=== PATIENT | female | born 1955 | race Caucasian/White ===

== ENCOUNTER 2023-07-19 14:49 | Inpatient (IN) | payer OTHER ==
[2023-07-19 16:05] VITALS: BMI 39.1
[2023-07-19] MEDS ORDERED: LOPERAMIDE HCL 2 MG CAPSULE PO PRN (23:38)
[2023-07-19] MEDS ORDERED: IBUPROFEN 400 MG TABLET (FP) PO PRN (23:38)
[2023-07-19] MEDS ORDERED: guaiFENesin 600 MG TABLET.ER (FP) PO PRN (23:38)
[2023-07-19] MEDS ORDERED: MAGNESIUM HYDROX 2400MG/30ML ORAL SUSPENSION 30 ML CUP PO PRN (23:38)
[2023-07-19] MEDS ORDERED: NICOTINE POLACRILEX 2 MG GUM BUC PRN (23:38)
[2023-07-19] MEDS ORDERED: BENZOCAINE/MENTHOL (CHLORASEPTIC ) LOZENGE MM PRN (23:38)
[2023-07-19] MEDS ORDERED: MAG HYDROX/AL HYDROX/SIMETH 30 ML UNIT-DOSE CUP PO PRN (23:38)
[2023-07-19] MEDS ORDERED: POLYETHYLENE GLYCOL (HEALTHYLAX) 3350 17 GM PACKET PO PRN (23:38)
[2023-07-19] MEDS ORDERED: BENZONATATE 200 MG CAPSULE PO PRN (23:38)
[2023-07-20] MEDS: MELATONIN 5 MG TABLETS PO SCH ×2 (01:29→21:13)
[2023-07-20] MEDS: COLLOIDAL OATMEAL 1 BAR EACH TP PRN (01:33)
[2023-07-20] MEDS: BICTEGRAV/EMTRICIT/TENOFOV (BIKTARVY) 50-200-25 MG TABLET PO SCH (07:08)
[2023-07-20] MEDS ORDERED: TUBERCULIN PPD 5 TU/0.1ML VIAL ID ONE (09:34)
[2023-07-20] MEDS: PRENATAL VITAMINS W/ FOLIC ACID TABLET (FP) PO SCH (09:36)
[2023-07-20] MEDS: P-EPHED 60MG/TRIPROLIDI 2.5MG TABLET PO PRN (09:37)
[2023-07-20] MEDS: ACETAMINOPHEN 325 MG TABLET (FP) PO PRN (09:38)
[2023-07-20] MEDS: TUBERCULIN PPD 5 TU/0.1ML SYRINGE (IN PATIENT USE ONLY) ID ONE ×2 (09:48→12:58)
[2023-07-20 10:49] LABS: HEMATOCRIT 40.6 % (32.4-45.2); HEMOGLOBIN 12.7 GM/dL (10.7-15.3); MCH 28.1 pg (25.7-33.7); MCHC 31.2 g/dl (32.0-36.0); MEAN CELL VOLUME 89.9 fl (80-96); MEAN PLT VOLUME 10.7 fl (7.5-11.1); PLATELET COUNT 146 10^3/uL (134-434); RBC 4.52 M/mm3 (3.60-5.2); RDW 14.5 % (11.6-15.6); WHITE BLOOD COUNT 4.5 K/mm3 (4.0-10.0)
[2023-07-20 11:04] LABS: CALCIUM 8.3 mg/dL (8.5-10.1); CREATININE 0.9 mg/dL (0.55-1.3); TOT PROT 6.4 g/dl (6.4-8.2)
[2023-07-20 11:06] LABS: ALBUMIN 2.9 g/dl (3.4-5.0); BILIRUBIN,TOTAL 0.2 mg/dL (0.2-1); BLOOD UREA NITROGEN 15.2 mg/dL (7-18)
[2023-07-20 12:40] LABS: SYPHILIS W/ RPR CONF NON-REACTIVE (NONREACTIVE)
[2023-07-20] MEDS ORDERED: PATIENT'S OWN MEDICATION (NON-FORMULARY) (Lisinopril/Hydrochlorothiazide [Lisinopril-Hctz PO SCH (16:00)
[2023-07-20] MEDS: HYDROCHLOROTHIAZIDE 12.5 MG CAPSULE (FP) PO SCH (18:01)
[2023-07-20] MEDS: LISINOPRIL 20 MG TABLET PO SCH (18:01)
[2023-07-20] MEDS: THIAMINE HCL 100 MG TABLET (FP) PO SCH (21:13)
[2023-07-20] MEDS: MONTELUKAST NA 10 MG TABLET PO SCH (21:15)
[2023-07-20] MEDS ORDERED: SUVOREXANT 10 MG TABLET PO PRN (22:00)
[2023-07-21] MEDS ORDERED: PNEUMOC 20-VAL CONJ-DIP CRM/PF 0.5 ML SYRINGE IM ONE (07:00)
[2023-07-21] MEDS: BICTEGRAV/EMTRICIT/TENOFOV (BIKTARVY) 50-200-25 MG TABLET PO SCH (07:02)
[2023-07-21] MEDS: PRENATAL VITAMINS W/ FOLIC ACID TABLET (FP) PO SCH (09:52)
[2023-07-21] MEDS: LISINOPRIL 20 MG TABLET PO SCH (09:52)
[2023-07-21] MEDS: HYDROCHLOROTHIAZIDE 12.5 MG CAPSULE (FP) PO SCH (09:52)
[2023-07-21] MEDS: GABAPENTIN 300 MG CAPSULE PO SCH (09:52)
[2023-07-21] MEDS: amLODIPine BESYLATE 5 MG TABLET (FP) PO SCH (09:52)
[2023-07-21] MEDS: P-EPHED 60MG/TRIPROLIDI 2.5MG TABLET PO PRN (09:52)
[2023-07-21] MEDS: MELATONIN 5 MG TABLETS PO SCH (21:07)
[2023-07-21] MEDS: MONTELUKAST NA 10 MG TABLET PO SCH (21:07)
[2023-07-21] MEDS: THIAMINE HCL 100 MG TABLET (FP) PO SCH (21:08)
[2023-07-22] MEDS: BICTEGRAV/EMTRICIT/TENOFOV (BIKTARVY) 50-200-25 MG TABLET PO SCH (07:02)
[2023-07-22] MEDS: amLODIPine BESYLATE 5 MG TABLET (FP) PO SCH (10:15)
[2023-07-22] MEDS: GABAPENTIN 300 MG CAPSULE PO SCH (10:15)
[2023-07-22] MEDS: LISINOPRIL 20 MG TABLET PO SCH (10:15)
[2023-07-22] MEDS: HYDROCHLOROTHIAZIDE 12.5 MG CAPSULE (FP) PO SCH (10:15)
[2023-07-22] MEDS: PRENATAL VITAMINS W/ FOLIC ACID TABLET (FP) PO SCH (10:15)
[2023-07-22] MEDS: ALBUTEROL SO4 HFA INHALER IH PRN (21:17)
[2023-07-22] MEDS: MONTELUKAST NA 10 MG TABLET PO SCH (21:19)
[2023-07-22] MEDS: THIAMINE HCL 100 MG TABLET (FP) PO SCH (21:19)
[2023-07-22] MEDS: ACETAMINOPHEN 325 MG TABLET (FP) PO PRN (21:19)
[2023-07-22] MEDS: MELATONIN 5 MG TABLETS PO SCH (21:20)
[2023-07-23] MEDS: BICTEGRAV/EMTRICIT/TENOFOV (BIKTARVY) 50-200-25 MG TABLET PO SCH (07:03)
[2023-07-23] MEDS: IBUPROFEN 600 MG TABLET (FP) PO PRN (07:31)
[2023-07-23] MEDS: PRENATAL VITAMINS W/ FOLIC ACID TABLET (FP) PO SCH (09:55)
[2023-07-23] MEDS: HYDROCHLOROTHIAZIDE 12.5 MG CAPSULE (FP) PO SCH (09:55)
[2023-07-23] MEDS: amLODIPine BESYLATE 5 MG TABLET (FP) PO SCH (09:55)
[2023-07-23] MEDS: LISINOPRIL 20 MG TABLET PO SCH (09:55)
[2023-07-23] MEDS: GABAPENTIN 300 MG CAPSULE PO SCH (09:55)
[2023-07-23] MEDS: MELATONIN 5 MG TABLETS PO SCH (21:02)
[2023-07-23] MEDS: THIAMINE HCL 100 MG TABLET (FP) PO SCH (21:03)
[2023-07-23] MEDS: MONTELUKAST NA 10 MG TABLET PO SCH (21:03)
[2023-07-24] MEDS: BICTEGRAV/EMTRICIT/TENOFOV (BIKTARVY) 50-200-25 MG TABLET PO SCH (07:25)
[2023-07-24] MEDS: PRENATAL VITAMINS W/ FOLIC ACID TABLET (FP) PO SCH (10:33)
[2023-07-24] MEDS: GABAPENTIN 300 MG CAPSULE PO SCH (10:33)
[2023-07-24] MEDS: amLODIPine BESYLATE 5 MG TABLET (FP) PO SCH (10:33)
[2023-07-24] MEDS: SODIUM CHLORIDE NASAL SPRAY 44 ML BOTTLE NS PRN (10:34)
[2023-07-24] MEDS: HYDROCHLOROTHIAZIDE 12.5 MG CAPSULE (FP) PO SCH (10:39)
[2023-07-24] MEDS: LISINOPRIL 20 MG TABLET PO SCH (10:40)
[2023-07-24] MEDS: THIAMINE HCL 100 MG TABLET (FP) PO SCH (21:11)
[2023-07-24] MEDS: MELATONIN 5 MG TABLETS PO SCH (21:11)
[2023-07-24] MEDS: MONTELUKAST NA 10 MG TABLET PO SCH (21:13)
[2023-07-24] MEDS: ALBUTEROL SO4 HFA INHALER IH PRN (21:14)
[2023-07-25] MEDS: SODIUM CHLORIDE NASAL SPRAY 44 ML BOTTLE NS PRN ×3 (00:07→21:21)
[2023-07-25 07:17] VITALS: RESP 18
[2023-07-25] MEDS: BICTEGRAV/EMTRICIT/TENOFOV (BIKTARVY) 50-200-25 MG TABLET PO SCH (07:28)
[2023-07-25] MEDS: PRENATAL VITAMINS W/ FOLIC ACID TABLET (FP) PO SCH (10:09)
[2023-07-25] MEDS: amLODIPine BESYLATE 5 MG TABLET (FP) PO SCH (10:11)
[2023-07-25] MEDS: LISINOPRIL 20 MG TABLET PO SCH (10:11)
[2023-07-25] MEDS: GABAPENTIN 300 MG CAPSULE PO SCH (10:11)
[2023-07-25] MEDS: HYDROCHLOROTHIAZIDE 12.5 MG CAPSULE (FP) PO SCH (10:11)
[2023-07-25] MEDS: ALBUTEROL SO4 HFA INHALER IH PRN ×2 (10:12→21:19)
[2023-07-25] MEDS: THIAMINE HCL 100 MG TABLET (FP) PO SCH (21:19)
[2023-07-25] MEDS: MELATONIN 5 MG TABLETS PO SCH (21:19)
[2023-07-25] MEDS: MONTELUKAST NA 10 MG TABLET PO SCH (21:19)
[2023-07-26] MEDS: BICTEGRAV/EMTRICIT/TENOFOV (BIKTARVY) 50-200-25 MG TABLET PO SCH (07:19)
[2023-07-26] MEDS: PRENATAL VITAMINS W/ FOLIC ACID TABLET (FP) PO SCH (09:45)
[2023-07-26] MEDS: amLODIPine BESYLATE 5 MG TABLET (FP) PO SCH (09:46)
[2023-07-26] MEDS: LISINOPRIL 20 MG TABLET PO SCH (09:46)
[2023-07-26] MEDS: GABAPENTIN 300 MG CAPSULE PO SCH (09:46)
[2023-07-26] MEDS: HYDROCHLOROTHIAZIDE 12.5 MG CAPSULE (FP) PO SCH (09:47)
[2023-07-26] MEDS: ALBUTEROL SO4 HFA INHALER IH PRN ×2 (09:48→21:38)
[2023-07-26] MEDS: SODIUM CHLORIDE NASAL SPRAY 44 ML BOTTLE NS PRN ×2 (09:48→21:38)
[2023-07-26] MEDS: COLLOIDAL OATMEAL 1 BAR EACH TP PRN (13:15)
[2023-07-26] MEDS: BUDESONIDE/FORMETEROL FUMARATE 160/4.5 mcg INHALER IH SCH (21:35)
[2023-07-26] MEDS: MELATONIN 5 MG TABLETS PO SCH (21:36)
[2023-07-26] MEDS: MONTELUKAST NA 10 MG TABLET PO SCH (21:37)
[2023-07-26] MEDS: THIAMINE HCL 100 MG TABLET (FP) PO SCH (21:37)
[2023-07-27] MEDS: BICTEGRAV/EMTRICIT/TENOFOV (BIKTARVY) 50-200-25 MG TABLET PO SCH (08:29)
[2023-07-27] MEDS: BUDESONIDE/FORMETEROL FUMARATE 160/4.5 mcg INHALER IH SCH ×2 (09:44→21:28)
[2023-07-27] MEDS: HYDROCHLOROTHIAZIDE 12.5 MG CAPSULE (FP) PO SCH (09:44)
[2023-07-27] MEDS: LISINOPRIL 20 MG TABLET PO SCH (09:44)
[2023-07-27] MEDS: amLODIPine BESYLATE 5 MG TABLET (FP) PO SCH (09:44)
[2023-07-27] MEDS: PRENATAL VITAMINS W/ FOLIC ACID TABLET (FP) PO SCH (09:45)
[2023-07-27] MEDS: GABAPENTIN 300 MG CAPSULE PO SCH (09:45)
[2023-07-27] MEDS: ALBUTEROL SO4 HFA INHALER IH PRN (09:46)
[2023-07-27] MEDS: MELATONIN 5 MG TABLETS PO SCH (21:26)
[2023-07-27] MEDS: THIAMINE HCL 100 MG TABLET (FP) PO SCH (21:26)
[2023-07-27] MEDS: MONTELUKAST NA 10 MG TABLET PO SCH (21:27)
[2023-07-27] MEDS: SODIUM CHLORIDE NASAL SPRAY 44 ML BOTTLE NS PRN (21:28)
[2023-07-28] MEDS: BICTEGRAV/EMTRICIT/TENOFOV (BIKTARVY) 50-200-25 MG TABLET PO SCH (07:04)
[2023-07-28] MEDS: HYDROCHLOROTHIAZIDE 12.5 MG CAPSULE (FP) PO SCH (09:52)
[2023-07-28] MEDS: LISINOPRIL 20 MG TABLET PO SCH (09:52)
[2023-07-28] MEDS: GABAPENTIN 300 MG CAPSULE PO SCH (09:52)
[2023-07-28] MEDS: PRENATAL VITAMINS W/ FOLIC ACID TABLET (FP) PO SCH (09:52)
[2023-07-28] MEDS: BUDESONIDE/FORMETEROL FUMARATE 160/4.5 mcg INHALER IH SCH ×2 (09:52→21:39)
[2023-07-28] MEDS: amLODIPine BESYLATE 5 MG TABLET (FP) PO SCH (09:52)
[2023-07-28] MEDS: SODIUM CHLORIDE NASAL SPRAY 44 ML BOTTLE NS PRN ×2 (09:53→21:39)
[2023-07-28] MEDS: MELATONIN 5 MG TABLETS PO SCH (21:40)
[2023-07-28] MEDS: THIAMINE HCL 100 MG TABLET (FP) PO SCH (21:40)
[2023-07-28] MEDS: MONTELUKAST NA 10 MG TABLET PO SCH (21:40)
[2023-07-28] MEDS: IBUPROFEN 600 MG TABLET (FP) PO PRN (21:41)
[2023-07-28] MEDS: METHYL SALICYLATE/MENTHOL OINT 30 GM TUBE TP PRN (21:45)
[2023-07-29] MEDS: BICTEGRAV/EMTRICIT/TENOFOV (BIKTARVY) 50-200-25 MG TABLET PO SCH (07:28)
[2023-07-29] MEDS: HYDROCHLOROTHIAZIDE 12.5 MG CAPSULE (FP) PO SCH (10:11)
[2023-07-29] MEDS: PRENATAL VITAMINS W/ FOLIC ACID TABLET (FP) PO SCH (10:11)
[2023-07-29] MEDS: BUDESONIDE/FORMETEROL FUMARATE 160/4.5 mcg INHALER IH SCH ×2 (10:11→21:07)
[2023-07-29] MEDS: GABAPENTIN 300 MG CAPSULE PO SCH (10:11)
[2023-07-29] MEDS: amLODIPine BESYLATE 5 MG TABLET (FP) PO SCH (10:11)
[2023-07-29] MEDS: LISINOPRIL 20 MG TABLET PO SCH (10:11)
[2023-07-29] MEDS: SODIUM CHLORIDE NASAL SPRAY 44 ML BOTTLE NS PRN ×2 (10:13→21:07)
[2023-07-29] MEDS ORDERED: BACLOFEN 10 MG TABLET (FP) PO PRN (11:26)
[2023-07-29] MEDS: THIAMINE HCL 100 MG TABLET (FP) PO SCH (21:08)
[2023-07-29] MEDS: MELATONIN 5 MG TABLETS PO SCH (21:08)
[2023-07-29] MEDS: MONTELUKAST NA 10 MG TABLET PO SCH (21:08)
[2023-07-29] MEDS: METHYL SALICYLATE/MENTHOL OINT 30 GM TUBE TP PRN (21:10)
[2023-07-30] MEDS: BICTEGRAV/EMTRICIT/TENOFOV (BIKTARVY) 50-200-25 MG TABLET PO SCH (07:05)
[2023-07-30] MEDS: SODIUM CHLORIDE NASAL SPRAY 44 ML BOTTLE NS PRN ×2 (10:02→21:25)
[2023-07-30] MEDS: amLODIPine BESYLATE 5 MG TABLET (FP) PO SCH (10:02)
[2023-07-30] MEDS: BUDESONIDE/FORMETEROL FUMARATE 160/4.5 mcg INHALER IH SCH ×2 (10:02→21:24)
[2023-07-30] MEDS: PRENATAL VITAMINS W/ FOLIC ACID TABLET (FP) PO SCH (10:02)
[2023-07-30] MEDS: HYDROCHLOROTHIAZIDE 12.5 MG CAPSULE (FP) PO SCH (10:03)
[2023-07-30] MEDS: LISINOPRIL 20 MG TABLET PO SCH (10:03)
[2023-07-30] MEDS: GABAPENTIN 300 MG CAPSULE PO SCH (10:03)
[2023-07-30] MEDS: MONTELUKAST NA 10 MG TABLET PO SCH (21:24)
[2023-07-30] MEDS: MELATONIN 5 MG TABLETS PO SCH (21:24)
[2023-07-30] MEDS: METHYL SALICYLATE/MENTHOL OINT 30 GM TUBE TP PRN (21:24)
[2023-07-30] MEDS: THIAMINE HCL 100 MG TABLET (FP) PO SCH (21:24)
[2023-07-31] MEDS: IBUPROFEN 600 MG TABLET (FP) PO PRN ×3 (03:02→22:14)
[2023-07-31] MEDS: BICTEGRAV/EMTRICIT/TENOFOV (BIKTARVY) 50-200-25 MG TABLET PO SCH (07:23)
[2023-07-31] MEDS: BUDESONIDE/FORMETEROL FUMARATE 160/4.5 mcg INHALER IH SCH ×2 (09:48→22:11)
[2023-07-31] MEDS: HYDROCHLOROTHIAZIDE 12.5 MG CAPSULE (FP) PO SCH (09:49)
[2023-07-31] MEDS: GABAPENTIN 300 MG CAPSULE PO SCH (09:49)
[2023-07-31] MEDS: PRENATAL VITAMINS W/ FOLIC ACID TABLET (FP) PO SCH (09:49)
[2023-07-31] MEDS: LISINOPRIL 20 MG TABLET PO SCH (09:49)
[2023-07-31] MEDS: amLODIPine BESYLATE 5 MG TABLET (FP) PO SCH (09:49)
[2023-07-31] MEDS: MONTELUKAST NA 10 MG TABLET PO SCH (22:11)
[2023-07-31] MEDS: MELATONIN 5 MG TABLETS PO SCH (22:11)
[2023-07-31] MEDS: THIAMINE HCL 100 MG TABLET (FP) PO SCH (22:12)
[2023-07-31] MEDS: SODIUM CHLORIDE NASAL SPRAY 44 ML BOTTLE NS PRN (22:13)
[2023-07-31] MEDS: METHYL SALICYLATE/MENTHOL OINT 30 GM TUBE TP PRN (22:16)
[2023-08-01] MEDS: BICTEGRAV/EMTRICIT/TENOFOV (BIKTARVY) 50-200-25 MG TABLET PO SCH (07:04)
[2023-08-01] MEDS: amLODIPine BESYLATE 5 MG TABLET (FP) PO SCH (09:39)
[2023-08-01] MEDS: PRENATAL VITAMINS W/ FOLIC ACID TABLET (FP) PO SCH (09:39)
[2023-08-01] MEDS: GABAPENTIN 300 MG CAPSULE PO SCH (09:39)
[2023-08-01] MEDS: HYDROCHLOROTHIAZIDE 12.5 MG CAPSULE (FP) PO SCH (09:40)
[2023-08-01] MEDS: SODIUM CHLORIDE NASAL SPRAY 44 ML BOTTLE NS PRN ×2 (09:40→21:59)
[2023-08-01] MEDS: BUDESONIDE/FORMETEROL FUMARATE 160/4.5 mcg INHALER IH SCH ×2 (09:40→21:58)
[2023-08-01] MEDS: LISINOPRIL 20 MG TABLET PO SCH (09:40)
[2023-08-01] MEDS: MELATONIN 5 MG TABLETS PO SCH (21:58)
[2023-08-01] MEDS: MONTELUKAST NA 10 MG TABLET PO SCH (21:59)
[2023-08-01] MEDS: THIAMINE HCL 100 MG TABLET (FP) PO SCH (21:59)
[2023-08-01] MEDS: METHYL SALICYLATE/MENTHOL OINT 30 GM TUBE TP PRN (22:00)
[2023-08-02] MEDS: BICTEGRAV/EMTRICIT/TENOFOV (BIKTARVY) 50-200-25 MG TABLET PO SCH (07:09)
[2023-08-02] MEDS: PRENATAL VITAMINS W/ FOLIC ACID TABLET (FP) PO SCH (10:09)
[2023-08-02] MEDS: BUDESONIDE/FORMETEROL FUMARATE 160/4.5 mcg INHALER IH SCH ×2 (10:09→21:46)
[2023-08-02] MEDS: SODIUM CHLORIDE NASAL SPRAY 44 ML BOTTLE NS PRN ×2 (10:09→21:46)
[2023-08-02] MEDS: LISINOPRIL 20 MG TABLET PO SCH (10:10)
[2023-08-02] MEDS: HYDROCHLOROTHIAZIDE 12.5 MG CAPSULE (FP) PO SCH (10:10)
[2023-08-02] MEDS: amLODIPine BESYLATE 5 MG TABLET (FP) PO SCH (10:10)
[2023-08-02] MEDS: GABAPENTIN 300 MG CAPSULE PO SCH (10:10)
[2023-08-02] MEDS: METHYL SALICYLATE/MENTHOL OINT 30 GM TUBE TP PRN (21:44)
[2023-08-02] MEDS: ALBUTEROL SO4 HFA INHALER IH PRN (21:45)
[2023-08-02] MEDS: MONTELUKAST NA 10 MG TABLET PO SCH (21:46)
[2023-08-02] MEDS: MELATONIN 5 MG TABLETS PO SCH (21:46)
[2023-08-02] MEDS: THIAMINE HCL 100 MG TABLET (FP) PO SCH (21:46)
[2023-08-03] MEDS: P-EPHED 60MG/TRIPROLIDI 2.5MG TABLET PO PRN (02:01)
[2023-08-03] MEDS: BICTEGRAV/EMTRICIT/TENOFOV (BIKTARVY) 50-200-25 MG TABLET PO SCH (07:01)
[2023-08-03] MEDS: HYDROCHLOROTHIAZIDE 12.5 MG CAPSULE (FP) PO SCH (10:17)
[2023-08-03] MEDS: amLODIPine BESYLATE 5 MG TABLET (FP) PO SCH (10:17)
[2023-08-03] MEDS: PRENATAL VITAMINS W/ FOLIC ACID TABLET (FP) PO SCH (10:17)
[2023-08-03] MEDS: BUDESONIDE/FORMETEROL FUMARATE 160/4.5 mcg INHALER IH SCH ×2 (10:17→21:34)
[2023-08-03] MEDS: LISINOPRIL 20 MG TABLET PO SCH (10:18)
[2023-08-03] MEDS: GABAPENTIN 300 MG CAPSULE PO SCH (10:18)
[2023-08-03] MEDS: MONTELUKAST NA 10 MG TABLET PO SCH (21:33)
[2023-08-03] MEDS: THIAMINE HCL 100 MG TABLET (FP) PO SCH (21:33)
[2023-08-03] MEDS: MELATONIN 5 MG TABLETS PO SCH (21:33)
[2023-08-04] MEDS: BICTEGRAV/EMTRICIT/TENOFOV (BIKTARVY) 50-200-25 MG TABLET PO SCH (07:18)
[2023-08-04] MEDS: BUDESONIDE/FORMETEROL FUMARATE 160/4.5 mcg INHALER IH SCH ×2 (10:09→21:17)
[2023-08-04] MEDS: PRENATAL VITAMINS W/ FOLIC ACID TABLET (FP) PO SCH (10:09)
[2023-08-04] MEDS: GABAPENTIN 300 MG CAPSULE PO SCH (10:10)
[2023-08-04] MEDS: amLODIPine BESYLATE 5 MG TABLET (FP) PO SCH (10:10)
[2023-08-04] MEDS: HYDROCHLOROTHIAZIDE 12.5 MG CAPSULE (FP) PO SCH (10:10)
[2023-08-04] MEDS: LISINOPRIL 20 MG TABLET PO SCH (10:10)
[2023-08-04] MEDS: MELATONIN 5 MG TABLETS PO SCH (21:17)
[2023-08-04] MEDS: THIAMINE HCL 100 MG TABLET (FP) PO SCH (21:17)
[2023-08-04] MEDS: MONTELUKAST NA 10 MG TABLET PO SCH (21:18)
[2023-08-04] MEDS: P-EPHED 60MG/TRIPROLIDI 2.5MG TABLET PO PRN (21:19)
[2023-08-04] MEDS: METHYL SALICYLATE/MENTHOL OINT 30 GM TUBE TP PRN (21:42)
[2023-08-05] MEDS: BICTEGRAV/EMTRICIT/TENOFOV (BIKTARVY) 50-200-25 MG TABLET PO SCH (07:33)
[2023-08-05] MEDS: LISINOPRIL 20 MG TABLET PO SCH (10:11)
[2023-08-05] MEDS: GABAPENTIN 300 MG CAPSULE PO SCH (10:11)
[2023-08-05] MEDS: amLODIPine BESYLATE 5 MG TABLET (FP) PO SCH (10:11)
[2023-08-05] MEDS: BUDESONIDE/FORMETEROL FUMARATE 160/4.5 mcg INHALER IH SCH ×2 (10:11→21:20)
[2023-08-05] MEDS: HYDROCHLOROTHIAZIDE 12.5 MG CAPSULE (FP) PO SCH (10:11)
[2023-08-05] MEDS: PRENATAL VITAMINS W/ FOLIC ACID TABLET (FP) PO SCH (10:11)
[2023-08-05] MEDS: THIAMINE HCL 100 MG TABLET (FP) PO SCH (21:20)
[2023-08-05] MEDS: MELATONIN 5 MG TABLETS PO SCH (21:20)
[2023-08-05] MEDS: MONTELUKAST NA 10 MG TABLET PO SCH (21:20)
[2023-08-05] MEDS: P-EPHED 60MG/TRIPROLIDI 2.5MG TABLET PO PRN (21:22)
[2023-08-05] MEDS: METHYL SALICYLATE/MENTHOL OINT 30 GM TUBE TP PRN (21:24)
[2023-08-06] MEDS: BICTEGRAV/EMTRICIT/TENOFOV (BIKTARVY) 50-200-25 MG TABLET PO SCH (07:34)
[2023-08-06] MEDS: HYDROCHLOROTHIAZIDE 12.5 MG CAPSULE (FP) PO SCH (09:58)
[2023-08-06] MEDS: amLODIPine BESYLATE 5 MG TABLET (FP) PO SCH (09:58)
[2023-08-06] MEDS: BUDESONIDE/FORMETEROL FUMARATE 160/4.5 mcg INHALER IH SCH ×2 (09:59→21:34)
[2023-08-06] MEDS: GABAPENTIN 300 MG CAPSULE PO SCH (09:59)
[2023-08-06] MEDS: PRENATAL VITAMINS W/ FOLIC ACID TABLET (FP) PO SCH (09:59)
[2023-08-06] MEDS: P-EPHED 60MG/TRIPROLIDI 2.5MG TABLET PO PRN ×2 (10:00→21:34)
[2023-08-06] MEDS: LISINOPRIL 20 MG TABLET PO SCH (10:00)
[2023-08-06] MEDS: MELATONIN 5 MG TABLETS PO SCH (21:33)
[2023-08-06] MEDS: MONTELUKAST NA 10 MG TABLET PO SCH (21:34)
[2023-08-06] MEDS: THIAMINE HCL 100 MG TABLET (FP) PO SCH (21:34)
[2023-08-06] MEDS: METHYL SALICYLATE/MENTHOL OINT 30 GM TUBE TP PRN (21:35)
[2023-08-07] MEDS: BICTEGRAV/EMTRICIT/TENOFOV (BIKTARVY) 50-200-25 MG TABLET PO SCH (07:10)
[2023-08-07] MEDS: GABAPENTIN 300 MG CAPSULE PO SCH (10:14)
[2023-08-07] MEDS: HYDROCHLOROTHIAZIDE 12.5 MG CAPSULE (FP) PO SCH (10:14)
[2023-08-07] MEDS: BUDESONIDE/FORMETEROL FUMARATE 160/4.5 mcg INHALER IH SCH ×2 (10:14→21:34)
[2023-08-07] MEDS: amLODIPine BESYLATE 5 MG TABLET (FP) PO SCH (10:14)
[2023-08-07] MEDS: PRENATAL VITAMINS W/ FOLIC ACID TABLET (FP) PO SCH (10:14)
[2023-08-07] MEDS: LISINOPRIL 20 MG TABLET PO SCH (10:15)
[2023-08-07] MEDS: P-EPHED 60MG/TRIPROLIDI 2.5MG TABLET PO PRN (21:35)
[2023-08-07] MEDS: MONTELUKAST NA 10 MG TABLET PO SCH (21:36)
[2023-08-07] MEDS: MELATONIN 5 MG TABLETS PO SCH (21:36)
[2023-08-07] MEDS: THIAMINE HCL 100 MG TABLET (FP) PO SCH (21:36)
[2023-08-08] MEDS: BICTEGRAV/EMTRICIT/TENOFOV (BIKTARVY) 50-200-25 MG TABLET PO SCH (07:10)
[2023-08-08] MEDS: amLODIPine BESYLATE 5 MG TABLET (FP) PO SCH (10:22)
[2023-08-08] MEDS: BUDESONIDE/FORMETEROL FUMARATE 160/4.5 mcg INHALER IH SCH ×2 (10:22→21:11)
[2023-08-08] MEDS: PRENATAL VITAMINS W/ FOLIC ACID TABLET (FP) PO SCH (10:22)
[2023-08-08] MEDS: GABAPENTIN 300 MG CAPSULE PO SCH (10:23)
[2023-08-08] MEDS: HYDROCHLOROTHIAZIDE 12.5 MG CAPSULE (FP) PO SCH (10:23)
[2023-08-08] MEDS: LISINOPRIL 20 MG TABLET PO SCH (10:23)
[2023-08-08] MEDS: P-EPHED 60MG/TRIPROLIDI 2.5MG TABLET PO PRN ×2 (10:24→21:12)
[2023-08-08] MEDS: THIAMINE HCL 100 MG TABLET (FP) PO SCH (21:11)
[2023-08-08] MEDS: MONTELUKAST NA 10 MG TABLET PO SCH (21:11)
[2023-08-08] MEDS: ACETAMINOPHEN 325 MG TABLET (FP) PO PRN (21:12)
[2023-08-08] MEDS: METHYL SALICYLATE/MENTHOL OINT 30 GM TUBE TP PRN (21:16)
[2023-08-08] MEDS: MELATONIN 5 MG TABLETS PO SCH (21:27)
[2023-08-09 07:00] VITALS: TEMP 97.5
[2023-08-09] MEDS: BICTEGRAV/EMTRICIT/TENOFOV (BIKTARVY) 50-200-25 MG TABLET PO SCH (07:03)
[2023-08-09] MEDS: PRENATAL VITAMINS W/ FOLIC ACID TABLET (FP) PO SCH (09:55)
[2023-08-09] MEDS: BUDESONIDE/FORMETEROL FUMARATE 160/4.5 mcg INHALER IH SCH (09:55)
[2023-08-09] MEDS: GABAPENTIN 300 MG CAPSULE PO SCH (09:55)
[2023-08-09] MEDS: amLODIPine BESYLATE 5 MG TABLET (FP) PO SCH (09:55)
[2023-08-09] MEDS: HYDROCHLOROTHIAZIDE 12.5 MG CAPSULE (FP) PO SCH (09:56)
[2023-08-09] MEDS: LISINOPRIL 20 MG TABLET PO SCH (09:56)
[2023-08-09 10:49] VITALS: BP 140/64; PULSE 80
== END 2023-08-09 10:15 | disposition home or self-care (01) | DRG 895 ==
LOC: YASAS 14:49 → Y5N 23:43
PROVIDERS: ADMIT Allergy & Immunology; ATTEND Psychiatry & Neurology Pain Medicine
PROC: HZ42ZZZ Group Counseling for Substance Abuse Treatment, Cognitive-Behavioral (ICD-10-PCS; principal; 2023-07-19)
DX: F10.20 Alcohol dependence, uncomplicated (principal); F14.20 Cocaine dependence, uncomplicated; F19.282 Other psychoactive substance dependence with psychoactive substance-induced sleep disorder; F41.9 Anxiety disorder, unspecified; E11.9 Type 2 diabetes mellitus without complications; I10 Essential (primary) hypertension; I73.9 Peripheral vascular disease, unspecified; K21.9 Gastro-esophageal reflux disease without esophagitis; J44.9 Chronic obstructive pulmonary disease, unspecified; M17.0 Bilateral primary osteoarthritis of knee; Z99.89 Dependence on other enabling machines and devices
CPT/HCPCS: 36415; 80053; 82962; 83036; 85027; 86780; 86803; 87635; 87811; 90677; 93005; 93010